=== PATIENT | male | born 1960 | race Caucasian/White ===

== ENCOUNTER 2020-08-23 12:26 | Outpatient (CLI) | payer OTHER ==
[2020-08-23] MEDS ORDERED: OMNIPAQUE 350 MG/ML, 100ML BOTTLE ONE (14:26)
== END 2020-08-23 23:59 | disposition home or self-care (01) ==
LOC: CFH 12:26
PROVIDERS: ATTEND Urology
DX: N40.0 Benign prostatic hyperplasia without lower urinary tract symptoms (principal); R97.20 Elevated prostate specific antigen [PSA]; J84.10 Pulmonary fibrosis, unspecified
CPT/HCPCS: 71260; 74177; 82565; Q9967

== ENCOUNTER 2020-10-31 10:23 | Outpatient (CLI) | payer OTHER | END 2020-10-31 23:59 | disposition home or self-care (01) | LOC: RAD 10:23 | PROVIDERS: ATTEND Urology | DX: C61 Malignant neoplasm of prostate (principal) | CPT/HCPCS: 78306; A9503 ==